=== PATIENT | female | born 1970 | race Caucasian/White ===

== ENCOUNTER → 2021-02-07 | Outpatient (CLI) | payer BC ==
[~2021-02-07] MED LIST: HYDROCORTISONE TP; PROP10TA16 PO
[2021-02-07 16:35] LABS: ALBUMIN 3.9 g/dL (3.4-5.0); ANION GAP 2 mmol/L (5-15); CALCIUM 9.3 mg/dL (8.5-10.1); CHLORIDE 112 mmol/L (98-107)
[2021-02-07 16:41] LABS: ALANINE AMINOTRANSFERASE 26 U/L (12-78); ALKALINE PHOSPHATASE 115 U/L (45-117); BILIRUBIN,TOTAL 0.5 mg/dL (0.2-1.0); CREATININE 0.58 mg/dL (0.55-1.02)
[2021-02-07 16:56] LABS: BASOPHILS % (AUTO) 1 % (0-1); EOSINOPHILS % (AUTO) 3 % (1-7); LYMPHOCYTES % (AUTO) 17 % (22-44); MEAN CORPUSCULAR HEMOGLOBIN 18.7 pg (27.0-34.8); MEAN CORPUSCULAR HGB CONC 30.5 g/dL (32.4-35.8); MEAN PLATELET VOLUME 8.5 fL (7.4-10.4); MONOCYTES % (AUTO) 6 % (2-9); NEUTROPHILS % (AUTO) 74 % (42-75); PLATELET COUNT 269 x10^3/uL (130-400); RED BLOOD COUNT 5.22 x10^6/uL (3.82-5.3); RED CELL DISTRIBUTION WIDTH 20.4 % (9.6-15.2)
[2021-02-07 16:59] LABS: MD MORPH REVIEW ONLY
[2021-02-07 17:14] LABS: ANISOCYTOSIS 1+; MICROCYTOSIS 2+
[2021-02-07 17:15] LABS: HYPOCHROMIA 1+; OVALOCYTES 1+; POLYCHROMASIA 1+
[2021-02-07 17:16] LABS: <PLATELET ESTIMATE> ADEQUATE; <PLT MORPHOLOGY> NORMAL PLT MORPH; TEAR DROPS 1+
== END | disposition home or self-care (01) ==
LOC: STAR 15:19
PROVIDERS: ATTEND Obstetrics & Gynecology
DX: Z01.818 Encounter for other preprocedural examination (principal); D21.9 Benign neoplasm of connective and other soft tissue, unspecified; N92.6 Irregular menstruation, unspecified; R94.31 Abnormal electrocardiogram [ECG] [EKG]; Z20.822 Contact with and (suspected) exposure to COVID-19
CPT/HCPCS: 36415; 80053; 84703; 85025; 93005; U0003; U0005